=== PATIENT | female | born 1965 ===

== ENCOUNTER → 2018-11-21 | Outpatient (CLI) | payer OTHER ==
--- NOTE | 2018-11-21 13:47 | Diagnostic Imaging Report ---
INDICATION: Preemployment physical. EXAMINATION: PA and lateral chest. FINDINGS: The heart and mediastinum are normal. The lungs are clear. There are no effusions or pneumothoraces. IMPRESSION: Negative chest. There is no radiographic evidence for tuberculosis. Dictated by: Dictated on workstation # [id number]
== END ==
LOC: RAD FS 13:19
PROVIDERS: ATTEND Surgery
DX: Z02.1 Encounter for pre-employment examination (principal); Z92.29 Personal history of other drug therapy
CPT/HCPCS: 71046